=== PATIENT | male | born 1955 | race Caucasian/White ===

== ENCOUNTER 2019-02-07 08:02 | Day surgery (SDC) | payer BC ==
[2019-02-06 13:46] VITALS: BMI 29.7
[2019-02-07 09:41] VITALS: TEMP 97.7
[2019-02-07 11:14] VITALS: BP 120/86; PULSE 71
--- NOTE | 2019-02-08 12:48 | PATH ---
Surgical Pathology Report Patient Name: MAURY AGARWAL [facility]. Rec. #: [id number] /Age/Gender: 1955 (Age: 63) / M Account: [id number] Location: [facility]-ENDOSCOPY Taken: 02/07/2019 Received: 02/07/2019 Reported: 02/08/2019 Physicians: Genesis Donohue M.D. Specimen(s) Received A: 2ND PORTION DUODENUM AND BULB B: FUNDUS C: ANTRUM D: DISTAL ESOPHAGUS E: MID ESOPHAGUS F: DISTAL TRANSVERSE COLON POLYP Clinical History History of Schatzki's ring and colon polyps, family history of colon cancer Postoperative diagnosis: Gastritis, duodenitis, gastric fundic polyps, colon polyp, diverticulosis, hemorrhoids Final Diagnosis A. DUODENUM, SECOND PORTION AND BULB, BIOPSY: DUODENAL MUCOSA WITH MODERATE CHRONIC DUODENITIS AND GASTRIC HETEROTOPIA. B. GASTRIC FUNDIC POLYPS, BIOPSY: POLYPOID GASTRIC MUCOSA WITH MILD CHRONIC GASTRITIS. IMMUNOHISTOCHEMICAL STAIN FOR H. PYLORI IS NEGATIVE. C. STOMACH, ANTRUM, BIOPSY: GASTRIC ANTRAL MUCOSA WITH MILD CHRONIC GASTRITIS. IMMUNOHISTOCHEMICAL STAIN FOR H. PYLORI IS NEGATIVE. D. 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 NO COLUMNAR MUCOSA, INTESTINAL METAPLASIA, OR DYSPLASIA IDENTIFIED. E. MID ESOPHAGUS, BIOPSY: SQUAMOUS MUCOSA WITH MILD BASAL CELL HYPERPLASIA CONSISTENT WITH MILD REFLUX ESOPHAGITIS. F. DISTAL TRANSVERSE COLON, POLYP, BIOPSY: TUBULAR ADENOMA. Electronically Signed Chloe Vergara M.D. Gross Description A. Received in formalin, labeled "biopsy duodenum second portion and bulb" are 5 briggs, irregular portions of soft tissue ranging from 0.2-0.4 cm. in greatest dimension. The specimens are submitted in toto in one cassette. B. Received in formalin, labeled "biopsy gastric fundic polyps" are 2 briggs, irregular portions of soft tissue averaging 0.4 cm. in greatest dimension. The specimens are submitted in toto in one cassette. C. Received in formalin, labeled "biopsy antrum" are 5 briggs, irregular portions of soft tissue ranging from 0.2-0.3 cm. in greatest dimension. The specimens are submitted in toto in one cassette. D. Received in formalin, labeled "biopsy distal esophagus" are 3 briggs, irregular portions of soft tissue ranging from 0.2-0.4 cm. in greatest dimension. The specimens are submitted in toto in one cassette. E. Received in formalin, labeled "biopsy mid esophagus" is a briggs, irregular portion of soft tissue measuring 0.2 cm. in greatest dimension. The specimen is submitted in toto in one cassette. F. Received in formalin, labeled "polyp distal transverse colon" is a briggs, irregular portion of soft tissue measuring 0.3 cm. in greatest dimension. The specimen is submitted in toto in one cassette. 02/07/2019 [facility]02/07/2019
== END 2019-02-07 10:46 | disposition home or self-care (01) ==
LOC: JASU-ENDO 08:02
PROVIDERS: ATTEND Internal Medicine Gastroenterology
PROC: 0DB38ZX Excision of Lower Esophagus, Via Natural or Artificial Opening Endoscopic, Diagnostic (ICD-10-PCS; 2019-02-07)
PROC: 0DB68ZX Excision of Stomach, Via Natural or Artificial Opening Endoscopic, Diagnostic (ICD-10-PCS; 2019-02-07)
PROC: 0DB28ZX Excision of Middle Esophagus, Via Natural or Artificial Opening Endoscopic, Diagnostic (ICD-10-PCS; 2019-02-07)
PROC: 0DBL8ZX Excision of Transverse Colon, Via Natural or Artificial Opening Endoscopic, Diagnostic (ICD-10-PCS; principal; 2019-02-07 08:45)
DX: Z12.11 Encounter for screening for malignant neoplasm of colon (principal); Z86.010 Personal history of colon polyps; Z80.0 Family history of malignant neoplasm of digestive organs; K21.9 Gastro-esophageal reflux disease without esophagitis; K44.9 Diaphragmatic hernia without obstruction or gangrene; K22.2 Esophageal obstruction; K31.7 Polyp of stomach and duodenum; K29.70 Gastritis, unspecified, without bleeding
CPT/HCPCS: 88305-TC; 88342-TC

== ENCOUNTER 2020-07-29 15:33 | Emergency (ER) | payer BC | END 2020-07-29 16:35 | disposition home or self-care (01) | LOC: JVIRT 15:33 | DX: Z11.59 Encounter for screening for other viral diseases (principal) | CPT/HCPCS: 87804; C9803; Q3014-GT; U0003 ==

== ENCOUNTER 2020-08-08 10:16 | Emergency (ER) | payer BC | END 2020-08-08 11:24 | disposition home or self-care (01) | LOC: JVIRT 10:16 | DX: Z11.59 Encounter for screening for other viral diseases (principal) | CPT/HCPCS: C9803; Q3014-GT; U0003 ==

== ENCOUNTER 2020-11-19 21:22 | Emergency (ER) | payer BC ==
[2020-11-19 21:29] VITALS: BP 150/105; PULSE 88; TEMP 97.9; BMI 29.6
[2020-11-19 22:23] LABS: BASO % 1.2 % (0-2.0); EOS % 1.7 % (0-4.5); HEMATOCRIT 40.9 % (35.4-49); HEMOGLOBIN 13.8 GM/dl (11.7-16.9); LYMPH % 24.7 % (8-40); MCH 28.9 pg (25.7-33.7); MCHC 33.6 g/dl (32.0-35.9); MEAN CELL VOLUME 85.9 fl (80-96); MEAN PLT VOLUME 7.8 fl (7.5-11.1); NEUT % 61.4 % (42.8-82.8); PLATELET COUNT 301 K/MM3 (134-434); RBC 4.76 M/mm3 (4.00-5.60); WHITE BLOOD COUNT 5.9 K/mm3 (4.0-10.8)
[2020-11-19 22:45] LABS: ALBUMIN 4.3 g/dl (3.4-5.0); BILIRUBIN,TOTAL 0.8 mg/dl (0.2-1); CREATININE 1.3 mg/dl (0.55-1.3); POTASSIUM 3.7 mmol/L (3.5-5.1); TOT PROT 6.9 g/dl (6.4-8.2)
[2020-11-19] MEDS ORDERED: KETOROLAC TROMETHAMINE 30 MG/1 ML VIAL IVPUSH ONE (23:10)
[2020-11-19] MEDS ORDERED: KETOROLAC TROMETHAMINE 30 MG/1 ML VIAL ONE (23:27)
== END 2020-11-19 23:41 | disposition home or self-care (01) ==
LOC: FER 21:22
PROC: 3E0333Z Introduction of Anti-inflammatory into Peripheral Vein, Percutaneous Approach (ICD-10-PCS; principal; 2020-11-19)
DX: R07.89 Other chest pain (principal)
CPT/HCPCS: 36415; 71045-TC-FY; 80053; 81003; 82550; 82553; 84484; 85025; 93005; 99285-25

== ENCOUNTER 2022-02-10 15:38 | Emergency (ER) | payer BC ==
[2022-02-10 15:52] VITALS: BP 131/92; PULSE 85; TEMP 98.6; BMI 27.3
[2022-02-10] MEDS ORDERED: DIPHTH,PERTUSS(ACELL),TET 0.5 ML DISP.SYRIN IM ONE ×2 (16:27→16:29)
== END 2022-02-10 17:17 | disposition home or self-care (01) ==
LOC: FER 15:38
PROC: 0HQGXZZ Repair Left Hand Skin, External Approach (ICD-10-PCS; principal; 2022-02-10)
PROC: 3E0234Z Introduction of Serum, Toxoid and Vaccine into Muscle, Percutaneous Approach (ICD-10-PCS; 2022-02-10)
DX: S61.211A Laceration without foreign body of left index finger without damage to nail, initial encounter (principal); Y28.9XXA Contact with unspecified sharp object, undetermined intent, initial encounter
CPT/HCPCS: 90715; 99284-25

== ENCOUNTER 2024-03-28 05:07 | Day surgery (SDC) | payer BC ==
[2024-03-22 13:44] VITALS: BMI 29.6
[2024-03-28] MEDS ORDERED: MIDAZOLAM HCL 2 MG/2 ML SINGLE DOSE VIAL ONE (07:58)
[2024-03-28] MEDS ORDERED: TETRACAINE/BENZOCAINE/BUTAMBEN 20 GM SPR TP ONE (07:58)
[2024-03-28 08:51] VITALS: TEMP 98
[2024-03-28 09:16] VITALS: RESP 16
[2024-03-28 09:33] VITALS: BP 107/71; PULSE 64
== END 2024-03-28 09:58 | disposition home or self-care (01) ==
LOC: JASU-ENDO 05:07
PROVIDERS: ATTEND Internal Medicine Gastroenterology
PROC: 0DB98ZX Excision of Duodenum, Via Natural or Artificial Opening Endoscopic, Diagnostic (ICD-10-PCS; 2024-03-28)
PROC: 0DB78ZX Excision of Stomach, Pylorus, Via Natural or Artificial Opening Endoscopic, Diagnostic (ICD-10-PCS; 2024-03-28)
PROC: 0DB68ZX Excision of Stomach, Via Natural or Artificial Opening Endoscopic, Diagnostic (ICD-10-PCS; 2024-03-28)
PROC: 0DB48ZX Excision of Esophagogastric Junction, Via Natural or Artificial Opening Endoscopic, Diagnostic (ICD-10-PCS; 2024-03-28)
PROC: 0DJD8ZZ Inspection of Lower Intestinal Tract, Via Natural or Artificial Opening Endoscopic (ICD-10-PCS; principal; 2024-03-28 08:00)
DX: Z12.11 Encounter for screening for malignant neoplasm of colon (principal); K55.20 Angiodysplasia of colon without hemorrhage; K64.8 Other hemorrhoids; Z86.010 Personal history of colon polyps; K21.00 Gastro-esophageal reflux disease with esophagitis, without bleeding; K44.9 Diaphragmatic hernia without obstruction or gangrene; K31.7 Polyp of stomach and duodenum; K29.50 Unspecified chronic gastritis without bleeding; K29.80 Duodenitis without bleeding; Z87.19 Personal history of other diseases of the digestive system
CPT/HCPCS: 88305-TC; 88342-TC